=== PATIENT | female | born 1955 | race Caucasian/White ===

== ENCOUNTER 2016-11-15 15:15 | Emergency (ER) | payer MEDICARE ==
[~2016-11-15] VITALS: Ht 154.9 cm; Wt 82.1 kg
[2016-11-15 15:35] VITALS: BP 158/88
--- NOTE | 2016-11-15 16:32 | ED.ADGEN ---
Past History Past Medical History: Anxiety, Depression Past Surgical History: Cholecystectomy, Hysterectomy, Other Alcohol Use: None Drug Use: None Adult General HPI HPI Patient is a 61-year-old female presents emergency department shortly after falling on an outstretched hand. Patient complains of pain to her left wrist. She still has good mobility in the area. She has had no prehospital intervention. Denies other injuries. Review of Systems Review of Systems Constitutional: Denies fever or chills [] Eyes: Denies change in visual acuity, redness, or eye pain [] HENT: Denies nasal congestion or sore throat [] Respiratory: Denies cough or shortness of breath [] Cardiovascular: No additional information not addressed in HPI [] GI: Denies abdominal pain, nausea, vomiting, bloody stools or diarrhea [] : Denies dysuria or hematuria [] Musculoskeletal: Denies back pain or joint pain [] Integument: Denies rash or skin lesions [] Neurologic: Denies headache, focal weakness or sensory changes [] Endocrine: Denies polyuria or polydipsia [] Allergies Allergies Allergies Coded Allergies Type Severity Reaction Last Updated Verified sulfamethoxazole Allergy Unknown 04/03/16 Yes trimethoprim Allergy Unknown 04/03/16 Yes Physical Exam Physical Exam Constitutional: Well developed, well nourished, no acute distress, non-toxic appearance. [] HENT: Normocephalic, atraumatic, bilateral external ears normal, oropharynx moist, no oral exudates, nose normal. [] Eyes: PERRLA, EOMI, conjunctiva normal, no discharge. [] Neck: Normal range of motion, no tenderness, supple, no stridor. [] Cardiovascular:Heart rate regular rhythm, no murmur [] Lungs & Thorax: Bilateral breath sounds clear to auscultation [] Abdomen: Bowel sounds normal, soft, no tenderness, no masses, no pulsatile masses. [] Skin: Warm, dry, no erythema, no rash. [] Back: No tenderness, no CVA tenderness. [] Extremities: Snuffbox tenderness of palpation with associated edema of the left breast, no cyanosis, no clubbing, ROM intact. [] Neurologic: Alert and oriented X 3, normal motor function, normal sensory function, no focal deficits noted. [] Psychologic: Affect normal, judgement normal, mood normal. [] Current Patient Data Vital Signs Vital Signs Date Time Temp Pulse Resp B/P Pulse Ox O2 Delivery O2 Flow Rate FiO2 11/15/16 15:35 98.6 100 12 96 Room Air EKG EKG [] Radiology/Procedures Radiology/Procedures Left wrist x-ray interpreted by me, no acute bony abnormality [] Course & Med Decision Making Course & Med Decision Making Pertinent Labs and Imaging studies reviewed. (See chart for details) I do not appreciate a distinct fracture of the wrist however with her snuffbox tenderness but did place her in a thumb spica splint and asked her to follow-up with her primary care physician or orthopedic doctor later this week for reexamination and x-ray as needed. She told me she has pain medication at home and deferred to new prescription. She will return emergency department sooner she develops new or worsening symptoms. [] Final Impression Final Impression Left wrist pain [] Problems: Dragon Disclaimer Dragon Disclaimer This electronic medical record was generated, in whole or in part, using a voice recognition dictation system. JERARDO APARICIO MD Nov 15, 2016 16:32
--- NOTE | 2016-11-16 07:50 | RAD ---
WRIST 3V LEFT Clinical Indication: pain s/p fall Comparison: None. Technique: Frontal, oblique and lateral views of the left wrist are obtained. Findings: No acute fracture or dislocation is seen. Degenerative appearing changes are present involving the distal radioulnar joint. Carpal bones remain aligned. Overlying soft tissues demonstrate no acute finding. IMPRESSION: No acute osseous injury.
== END 2016-11-15 16:12 | disposition home or self-care (01) ==
LOC: ER 15:15
DX: M25.532 Pain in left wrist (principal); Z88.1 Allergy status to other antibiotic agents; W19.XXXA Unspecified fall, initial encounter; Y93.89 Activity, other specified; Y99.8 Other external cause status; Y92.89 Other specified places as the place of occurrence of the external cause
CPT/HCPCS: 29125; 73110; 99284-25

== ENCOUNTER → 2016-11-26 | Outpatient (CLI) | payer MEDICARE ==
[2016-11-15 15:35] VITALS: BP 158/88
--- NOTE | 2016-11-26 15:28 | RAD ---
Left wrist radiographs History: Fall November 15, 2016, continued pain. Comparison: November 15, 2016. Findings: PA, lateral, ulnar deviated, and oblique views of the left wrist. No acute fracture or dislocation is identified. There is evidence of osteophyte versus accessory ossicle involving the distal radial ulnar joint. Mild radiocarpal and intercarpal degeneration is seen. There is ulnar positive variance. There does appear to be some cystic change involving the lunate. Impression: 1. No acute osseous traumatic injury identified. 2. Ulnar positive variance is seen, which can predispose to ulnar abutment syndrome. There does appear to be some cystic change involving the lunate which also can be seen with that entity. Recommend clinical correlation.
== END | disposition home or self-care (01) ==
LOC: DXRADRC 13:59
PROVIDERS: ATTEND Physician Assistant
DX: M25.532 Pain in left wrist (principal); W19.XXXA Unspecified fall, initial encounter; Y93.89 Activity, other specified; Y92.89 Other specified places as the place of occurrence of the external cause; Y99.8 Other external cause status
CPT/HCPCS: 73110

== ENCOUNTER → 2019-05-12 | Outpatient (CLI) | payer MEDICARE ==
--- NOTE | 2019-05-12 12:38 | RAD ---
2 view study of both knees Clinical indications: Bilateral knee pain. Right knee: No acute fracture or dislocation or lytic process is evident. Mild degenerative joint space narrowing and mild spurring of the medial tibiofemoral joint compartment is seen. No right knee joint effusion is seen radiographically. Left knee: No acute fracture or dislocation or lytic process is evident. There is moderate spurring and mild joint space narrowing of the medial tibiofemoral joint compartment. There is mild spurring and mild joint space narrowing of the lateral tibiofemoral joint compartment. No left knee joint effusion is seen radiographically. IMPRESSION: Bilateral primary degenerative osteoarthritis. Electronically signed by: Italo Crowe MD (05/12/2019 12:36 PM) [id number]
== END | disposition home or self-care (01) ==
LOC: RAD 10:37
PROVIDERS: ATTEND Physician Assistant
DX: M17.0 Bilateral primary osteoarthritis of knee (principal)
CPT/HCPCS: 73560